=== PATIENT | male | born 1965 | race Hispanic/Latino ===

== ENCOUNTER 2018-11-08 13:05 | Emergency (ER) | payer SELFPAY ==
--- NOTE | 2018-11-08 14:41 | Event Note ---
ED Screening Note Date of service: 11/08/18 Time: 14:39 ED Screening Note: This initial assessment/diagnostic orders/clinical plan/treatment(s) is/are subject to change based on patients health status, clinical progression and re- assessment by fellow clinical providers in the ED. Further treatment and workup at subsequent clinical providers discretion. Patient/guardian urged not to elope from the ED as their condition may be serious if not clinically assessed and managed. Initial orders include:
--- NOTE | 2018-11-08 14:46 | Emergency Department Report ---
ED Medical Clearance HPI - General Chief complaint: Pain General Stated complaint: LEG/HAND PAIN Source: patient Mode of arrival: Ambulatory - History of Present Illness Initial comments: 53 y/o male comes in for chronic pain. reports that he has ran out of his Gabapentin 100mg tid. No other complaints. History of bilateral BKA with [place] pain. Onset/Timin -: days(s) Alledged Intoxication: No Compliant with Home Medications: No Treatments Prior to Arrival: none Home medications: Previous Rx's Medication Instructions Recorded Last Taken Type Gabapentin [Neurontin] 100 mg PO Q8HR #30 capsule 11/08/18 Unknown Rx Allergies/Adverse reactions: Allergies Allergy/AdvReac Type Severity Reaction Status Date / Time iodine Allergy Swelling Verified 11/08/18 13:16 morphine Allergy Swelling Verified 11/08/18 13:16 shellfish derived Allergy Swelling Verified 11/08/18 13:16 tramadol Allergy Swelling Verified 11/08/18 13:16 ED Review of Systems ROS: Stated complaint: LEG/HAND PAIN Other details as noted in HPI Comment: All other systems reviewed and negative Constitutional: denies: chills, fever Eyes: denies: eye pain, eye discharge, vision change ENT: denies: ear pain, throat pain Respiratory: denies: cough, shortness of breath, wheezing Cardiovascular: denies: chest pain, palpitations Endocrine: no symptoms reported Gastrointestinal: denies: abdominal pain, nausea, diarrhea Genitourinary: denies: urgency, dysuria Musculoskeletal: denies: back pain, joint swelling, arthralgia Skin: denies: rash, lesions Neurological: denies: headache, weakness, paresthesias Psychiatric: denies: anxiety, depression Hematological/Lymphatic: denies: easy bleeding, easy bruising ED Past Medical Hx - Past Medical History Hx Hypertension: Yes Hx Diabetes: Yes Additional medical history: HIGH CHOLESTROL - Surgical History Hx Appendectomy: Yes Additional Surgical History: DOUBLE BKA. LEFT KNEE. CARPAL TUNNEL X2 - Medications Home Medications: Home Medications Medication Instructions Recorded Confirmed Last Taken Type Gabapentin [Neurontin] 100 mg PO Q8HR #30 capsule 11/08/18 Unknown Rx ED Physical Exam - General Limitations: Physical Limitation General appearance: alert, in no apparent distress - Head Head exam: Present: atraumatic, normocephalic - Eye Eye exam: Present: normal appearance - ENT ENT exam: Present: mucous membranes moist - Expanded Lower Extremity Exam Left Knee exam: Present: deformity Foot/Toe exam: Present: amputation - Neurological Exam Neurological exam: Present: alert, oriented X3 - Psychiatric Psychiatric exam: Present: normal affect, normal mood - Skin Skin exam: Present: warm, dry, intact, normal color. Absent: rash ED Disposition Clinical Impression: Neuropathy Disposition: DC-01 TO HOME OR SELFCARE Is pt being admited?: No Does the pt Need Aspirin: No Condition: Stable Instructions: Peripheral Neuropathy (ED) Additional Instructions: Take medication and follow up with your provider. Prescriptions: Gabapentin [Neurontin] 100 mg PO Q8HR #30 capsule Referrals: LACIE AUSTIN MD [Primary Care Provider] - 3-5 Days
[2018-11-08] MEDS ORDERED: NEURONTIN PO ONE (14:54)
== END 2018-11-08 15:02 | disposition home or self-care (01) ==
LOC: ED 13:05
DX: E11.40 Type 2 diabetes mellitus with diabetic neuropathy, unspecified (principal); I10 Essential (primary) hypertension; E78.00 Pure hypercholesterolemia, unspecified; Z90.49 Acquired absence of other specified parts of digestive tract; Z91.041 Radiographic dye allergy status; Z88.5 Allergy status to narcotic agent; Z91.013 Allergy to seafood; Z89.512 Acquired absence of left leg below knee; Z89.511 Acquired absence of right leg below knee; Z79.899 Other long term (current) drug therapy
CPT/HCPCS: 99282